=== PATIENT | female | born 1970 | race Caucasian/White ===

== ENCOUNTER 2016-07-27 09:49 | Emergency (ER) | payer BC, OTHER ==
[2016-07-27 09:59] VITALS: TEMP 98.4; BMI 29.3
[2016-07-27] MEDS ORDERED: NS 2,000 ML IV ONE (10:48)
[2016-07-27] MEDS ORDERED: ONDANSETRON HCL 4 MG/2 ML VIAL IV ONE (10:48)
[2016-07-27] MEDS ORDERED: REGULAR INSULIN 100 UNITS/ML - 3 ML VIAL IV ONE (10:49)
--- NOTE | 2016-07-27 10:52 | EDPRACDOC ---
- General Information Chief Complaint: Nausea,Vomiting,Diarrhea Stated Complaint: HYPERGLYCEMIA/FLU LIKE SYMPTOMS Time Seen by Provider: 07/27/16 10:11 Mode Of Arrival: Car Home Medications: Home Medications Metoprolol Succinate (XL) [Toprol Xl] 25 mg PO DAILY 06/06/13 Ibuprofen 800 mg PO BID PRN 08/10/13 Allopurinol [Zyloprim] 100 mg PO DAILY 07/27/16 Alprazolam [Xanax] 0.25 - 0.5 mg PO HS PRN 07/27/16 CYANOCOBALAMIN (Vitamin B-12) [Vitamin B-12] 1,000 mcg IM .MONTHLY ON THE 07/27/16 Cinnamon Bark [Cinnamon] 1,000 mg PO DAILY 07/27/16 Dapagliflozin Propanediol [Farxiga] 5 mg PO DAILY 07/27/16 Dicyclomine HCl [Bentyl] 20 mg PO BID 07/27/16 Docusate Sodium [Stool Softener] 100 mg PO DAILY PRN 07/27/16 Gabapentin [Neurontin] 600 mg PO BID 07/27/16 MetFORMIN (Immediate Release) [GLUCOPHAGE Immed Release] 1,000 mg PO BID Methocarbamol [Robaxin] 500 mg PO HS PRN 07/27/16 Ondansetron HCl [Zofran] 4 mg PO TID PRN #14 tablet 07/27/16 Potassium Chloride 20 meq PO DAILY 07/27/16 Pravastatin Sodium 10 mg PO HS 07/27/16 Valsartan/Hydrochlorothiazide [Valsartan-Hctz 80-12.5 mg Tab] 1 each PO DAILY Allergies/Adverse Reactions: Allergies Allergy/AdvReac Type Severity Reaction Status Date / Time Sulfa (Sulfonamide Allergy Nausea only Verified 07/27/16 09:59 Antibiotics) - History of Present Illness Onset: 3 DAYS Symptoms Occured: Reports: Spontaneous Duration: Reports: Intermittent Emesis: Reports: Food Particles Pain Quality: Reports: Colicky, Cramping Pain Location: Reports: Diffuse : No Associated Signs & Symptoms: Reports: Nausea, Vomiting (X 3 / DAY), Diarrhea ( SEVERAL PER DAY), Fever (LOW GRADE). Denies: Urgency, Hematuria, Chills Oral Intake: Decreased Urinary Output: Decreased Other History: PATIENT WENT TO URGENT CARE, SUGARS WERE ELEVATED, AND PATIENT WAS WAS REFERRED TO [facility] FOR FURTHER EVALUATION. ED Past Medical History - History Reviewed Yes Nurses notes reviewed and agree except as marked - Patient Medical History Cardiac History: Reports: Hypertension GI/ History: Reports: Kidney Stones Psychological History: Reports: Anxiety Systemic History: Reports: Diabetes. Denies: Cancer - Family Medical History Reports: Hypertension (DAD), Diabetes (DAD), Cancer (MOM), Cardiac Disorders ( DAD) - Social Medical History ETOH: None Substance Abuse: None Lives With: Family Lives In: Home EDM Review of Systems - Review of Systems ROS Negative Except as Marked: Yes All systems reviewed and were negative except as marked - Physical Exam Constitutional: No apparent distress, Alert Oriented to: Time, Person, Place Last recorded Vital Signs: Last Vital Signs Temp 98.4 F 07/27/16 09:55 Pulse 98 07/27/16 09:55 Resp 20 07/27/16 09:55 BP 144/86 07/27/16 09:55 Pulse Ox 97 07/27/16 09:55 Oxygen Pulse Oxygen Saturation 97 O2 Device Room Air Oxygen Flow Rate Fraction of Inspired Oxygen ( FIO2) - HEENT Head: Normal ( normocephalic) Eye Exam: Normal (PERRL, EOMI, Sclera white). negative: Pale Conjunctiva, Scleral Icterus Oropharynx: Normal (Pharynx:Moist without exudate,Gums-no swelling). negative: Membranes Dry Nose: No Symptoms Reported Neck: Normal (FROM, trachea at midline) - Respiratory/Cardiovascular Respiratory: Normal - CTA (BBS clear to auscultation without adventitious sounds ). negative: Tachypnea Cardiovascular: Normal (RRR without murmur, gallop or rub) - GI Auscultation: Normal (NABS) Palpation: Normal (Soft,No rebound or guarding, non distended) Tenderness: Non tender Paz's Sign: Negative - Musculoskeletal Back: Normal (Non-Tender) Extremities: Normal (Normal tone, Pulses 2+ No cyanosis or edema, FROM) - Integumentary Skin: Normal, Warm, Dry Lymphatics: Normal (no adenopathy) - Neurologic Memory Impaired: Normal Motor Function: Normal (Normal tone, Pulses 2+ No cyanosis or edema, FROM) Mood Description: Normal Thought: Coherent Perception: Normal - Results POC Capillary Glucose 364 MG/DL (70-99) H 07/27/16 09:57 Lab Results 07/27/16 09:57 POC Capillary Glucose 364 H - Departure Disposition: Home Condition: Stable Final Diagnosis: Dehydration, Nausea vomiting and diarrhea Instructions: Acute Nausea and Vomiting (ED), Acute Diarrhea (ED), Dehydration Education/Counseling Given To: Patient, Family Member Education/Counseling Given Regarding: Diagnosis, Treatment, Prognosis Prescriptions: Ondansetron HCl [Zofran] 4 mg PO TID PRN #14 tablet PRN Reason: NAUSEA OR VOMITING Additional Instructions: Drink sips of Gatorade every 2-3 minutes while awake. Do NOT drink large volumes of fluid at once. If you vomit, take the nausea-vomiting medicine prescribed, wait ~ 30 minutes, and restart the sipping process. Return to the Emergency Department if you think you are getting dehydrated, have persistent abdominal pain that is unrelenting, have worse or different symptoms, or any concerns.
[2016-07-27 11:02] LABS: URINE OCCULT BLOOD 2+ (NEG/TRACE)
[2016-07-27 11:03] LABS: LEUKOCYTES/URINE 1+ (NEGATIVE); NITRITE/URINE NEG (NEGATIVE)
[2016-07-27 11:20] LABS: BLOOD UREA NITROGEN 15 MG/DL (7-17); CALCIUM 9.9 MG/DL (8.4-10.2); CALCULATED OSMOLALITY 278 MOs/Kg (270-290); CHLORIDE 95 mEq/L (98-107); GLUCOSE 340 MG/DL (70-99); SODIUM LEVEL 137 mEq/L (137-146)
[2016-07-27 12:07] VITALS: BP 123/79; PULSE 90
== END 2016-07-27 12:25 | disposition home or self-care (01) ==
LOC: ED 09:49
DX: E86.0 Dehydration (principal); R11.2 Nausea with vomiting, unspecified; R19.7 Diarrhea, unspecified; E11.9 Type 2 diabetes mellitus without complications
CPT/HCPCS: 36415; 80048; 81001; 82962; 96361; 96374; 96375; 99283; J2405; J3490